=== PATIENT | male | born 1950 | race Caucasian/White ===

== ENCOUNTER → 2024-03-02 06:43 | Outpatient (REF) | payer MEDICARE, SELFPAY | LOC: HWRAD 06:43 | PROVIDERS: ATTENDING PHYSICIAN Internal Medicine Gastroenterology; FAMILY PHYSICIAN Family Medicine | DX: K21.9 Gastro-esophageal reflux disease without esophagitis (principal) | CPT/HCPCS: 76700 ==

== ENCOUNTER 2024-08-22 11:16 | Emergency (ER) | payer MEDICARE, SELFPAY ==
[2024-08-22 11:24] VITALS: BP 171/77
[2024-08-22 11:36] VITALS: BMI 26.4
[2024-08-22 11:45] VITALS: BP 143/87
[2024-08-22 11:56] LABS: % Basophils 0.5 % (0-2); % Eosinophils 3.2 % (0-6); % Immature Granulocytes 0.3 % (0-0.5); % Lymphocytes 27.5 % (20.5-51.1); % Monocytes 5.2 % (1.7-9.3); % Neutrophils 63.3 % (42.2-75.2); Absolute Eosinophils 0.3 10^3/uL (0-0.7); Absolute Lymphocytes 2.2 10^3/uL (1.2-3.4); Absolute Monocytes 0.4 10^3/uL (0.1-0.6); Hematocrit 42.4 % (39.0-52.0); Hemoglobin 14.7 g/dL (13.0-18.0); Mean Corp Hgb Conc. 34.7 g/dL (33.0-37.0); Mean Corpuscular Hgb 29.8 pg (27.0-31.0); Mean Platelet Volume 11.3 fL (7.4-10.4); Nucleated Red Blood Cells % 0 % (-); Platelet Count 188 10^3/uL (130-400); Red Blood Cell Count 4.93 10^6/uL (4.70-6.10); Red Cell Dist. Width 13.4 % (11.5-14.5); White Blood Cell Count 7.9 10^3/uL (4.8-10.8)
[2024-08-22 12:00] VITALS: BP 140/76
--- NOTE | 2024-08-22 12:07 | ED.GENMED ---
History of Present Illness
General
Chief Complaint: Chest Pain
Time Seen by Provider: 08/22/24 11:32
History of Present Illness
History of Present Illness:
73-year-old male with history of GERD and overactive bladder presenting to the emergency department for intermittent chest pain. Patient reports symptoms on and off for over a week. Does note that symptoms are worse with walking around, no
symptoms at rest. Denies known cardiac issues. Pain is on the right side of the chest with tingling to the right and left extremities. Denies ever having to see a labor specialist in the past. Denies abdominal pain or GI symptoms. Denies fever or
cough. Patient went to his primary care doctor prior to arrival, was sent to the ER for further assessment
Phy Exam
Physical Exam
Physical Exam:
General: Well-appearing, no clinical signs of dehydration, nontoxic and in no acute distress
HEENT: protecting airway
Neck: appears supple
CV: Normal heart rate, regular rhythm
Resp: No accessory muscle use, no increased work of breathing, lungs clear to auscultation bilaterally
Abd: Soft and non-distended, no tenderness to palpation
Extremities: No deformities, no swelling, no erythema
Neuro: alert, no focal neurologic deficit
: deferred
Rectal: deferred
Psych: Normal affect
Skin: Intact
Scores
Heart Score for Chest Pain Patients
STEMI patient?: No
History: Moderately Suspicious
ECG: Normal
Age: >/= 65 years
Risk Factors: No Risk Factors
Troponin: </= Normal Limit
Heart Score for Chest Pain Patients: 3
Heart Score Risk: 2.5% MACE over next 6 weeks
Course
Orders/Labs/Results
Orders:
Orders
08/22/24 11:17
ECG [Electrocardiogram (*1)] Urgent
Reason for Study: Chest Pain
EKG- Treatment ONCE
08/22/24 11:36
Complete Blood Count/With Diff Urgent
Comprehensive Metabolic Panel Urgent
Lipase Urgent
Troponin I Urgent
Abnormal Lab Results
08/22/24
11:36
MPV 11.3 H fL
(7.4-10.4)
08/22/24 11:36
08/22/24 11:36
Vital Signs
Initial and Last Documented VS:
Initial Vital Signs
Temp Pulse Resp BP Pulse Ox
98.0 F 42 16 171/77 98
08/22/24 11:24 08/22/24 11:24 08/22/24 11:24 08/22/24 11:24 08/22/24 11:24
Last Documented Vital Signs
Temp Pulse Resp BP Pulse Ox
98.0 F 73 15 140/76 100
08/22/24 11:24 08/22/24 12:15 08/22/24 12:15 08/22/24 12:00 08/22/24 12:15
MDM/Problems Addressed
MDM/Problems Addressed:
73-year-old male presenting to the emergency department for intermittent chest pain for the past week. Vital signs on arrival significant for hypertension, however resolved without intervention.
On exam patient is resting comfortably, no present chest pain at rest. EKG obtained, frequent PVCs, however patient is denying any palpitations or heart fluttering. Patient does note pain with exertion. No obvious ischemic abnormality on EKG.
However concerning symptom presentation, plan for labs including troponin.
13:10 -labs are unremarkable including negative troponin. EKG interpreted by cardiology, without concern for ischemia. At this time feel stable for discharge, however with close interval follow-up with cardiology for potential stress testing.
Will provide cardiology follow-up. Return precautions discussed and patient verbalized understanding
*EKG
Interpreted by ED Provider?: Yes
EKG Intrepretation Date: 08/22/24
EKG Intrepretation Time: 12:10
Interpretation: abnormal
Comparison EKG: no comparison EKG present
Heart Rate: 72
Rate: normal
Rhythm: sinus and PVC's
[place]: normal axis
Interval: normal interval
QRS Pattern: normal QRS
Ischemia: no ischemia
*Critical Care Note
Total Time (30-74mins, 75-104mins- exclusive of procedures): Not Applicable
ED Attending Note
-
Portions of this chart may have been created with voice recognition software.� Occasional wrong word or��sound alike� substitutions may have occurred due to the inherent limitations of voice recognition software.
Discharge Plan
Departure
Patient Disposition: Home (Routine Discharge)
Date of Disposition: 08/22/24
Time of Disposition: 13:16
Patient with high blood pressure during this ER visit?: Yes
Condition: Good
Discharge Problem:
Chest pain
Instructions: Chest Pain CBC Follow Up, BLOOD PRESSURE
Referrals:
Alok Elliott MD [Family Provider] -
Activity Restrictions/Additional Instructions:
You were seen in the emergency department for chest pain
You were found to have normal blood work and normal EKG. You are advised to follow-up closely with the cardiology's. They should call you in the next 3 to 5 days for appointment. However if you do not hear for them, please call them to schedule
an appointment.
Please follow-up closely with your primary care physician.
Return to the emergency department for any worsening of your symptoms, or any development of chest pain, difficulty breathing, abdominal pain with persistent vomiting and inability to tolerate food or liquid by mouth (concern for dehydration),
weakness, headache or confusion, fever greater than 100.4, or any additional symptoms that are concerning to you.
Thank you for choosing [facility].
Interventions
Interventions:
*Risk Screen - Suicide Last Done: 08/22/24 11:24
*Neglect/Abuse Screening Last Done: 08/22/24 11:24
ED- Cardiac Assessment Last Done: 08/22/24 11:59
Discharge Date and Time
Print Language: MAORI
[2024-08-22 12:12] LABS: ALT (SGPT) 27 U/L (0-50); AST (SGOT) 26 U/L (17-59); Albumin 4.2 g/dl (3.5-5.0); Alkaline Phosphatase 79 U/L (38-126); Blood Urea Nitrogen 11 mg/dl (9-20); Calcium 9.5 mg/dl (8.4-10.2); Carbon Dioxide 25 mmol/L (22-30); Chloride 107 mmol/L (98-107); Estimated Creatinine Clearance 81 ml/min; Glucose 97 mg/dl (70-99); Lipase 51 U/L (23-300); Potassium 3.9 mmol/L (3.5-5.1); Sodium 140 mmol/L (135-145); Total Protein 7.2 g/dl (6.3-8.2); eGFR > 60.00
[2024-08-22 12:23] LABS: Troponin I < 0.012 ng/ml
== END 2024-08-22 13:40 | disposition home or self-care (01) ==
LOC: EMR 11:16
PROVIDERS: EMERGENCY PHYSICIAN Student in an Organized Health Care Education/Training Program; FAMILY PHYSICIAN Family Medicine
DX: R07.89 Other chest pain (principal); R20.2 Paresthesia of skin; I49.3 Ventricular premature depolarization; K21.9 Gastro-esophageal reflux disease without esophagitis
CPT/HCPCS: 99284; 80053; 83690; 84484; 85025; 93005

== ENCOUNTER → 2024-08-24 10:00 | Outpatient (REF) | payer MEDICARE, SELFPAY | LOC: HWRAD 10:00 | PROVIDERS: ATTENDING PHYSICIAN Internal Medicine Cardiovascular Disease; FAMILY PHYSICIAN Family Medicine | DX: R07.89 Other chest pain (principal); I49.3 Ventricular premature depolarization; I49.8 Other specified cardiac arrhythmias | CPT/HCPCS: 71046 ==

== ENCOUNTER → 2024-08-28 10:07 | Outpatient (REF) | payer MEDICARE, SELFPAY | LOC: HWRCS 10:07 | PROVIDERS: ATTENDING PHYSICIAN Internal Medicine Cardiovascular Disease; FAMILY PHYSICIAN Family Medicine | DX: R07.89 Other chest pain (principal); I49.3 Ventricular premature depolarization; I49.8 Other specified cardiac arrhythmias | CPT/HCPCS: 93306 ==

== ENCOUNTER → 2024-08-29 12:16 | Outpatient (REF) | payer MEDICARE, SELFPAY | LOC: HWRCS 12:16 | PROVIDERS: ATTENDING PHYSICIAN Internal Medicine Cardiovascular Disease; FAMILY PHYSICIAN Family Medicine | DX: R07.89 Other chest pain (principal); I49.3 Ventricular premature depolarization; I49.8 Other specified cardiac arrhythmias | CPT/HCPCS: 78452; 93017; A9500 ==

== ENCOUNTER → 2024-09-04 08:16 | Outpatient (REF) | payer MEDICARE, SELFPAY | LOC: RCS 08:16 | PROVIDERS: ATTENDING PHYSICIAN Internal Medicine Cardiovascular Disease; FAMILY PHYSICIAN Family Medicine | DX: R07.89 Other chest pain (principal); I49.8 Other specified cardiac arrhythmias | CPT/HCPCS: 93225; 93226 ==

== ENCOUNTER → 2025-02-13 08:49 | Outpatient (REF) | payer MEDICARE, SELFPAY | LOC: DHSLP 08:49 | PROVIDERS: ATTENDING PHYSICIAN Internal Medicine; FAMILY PHYSICIAN Family Medicine | DX: G47.30 Sleep apnea, unspecified (principal); R06.83 Snoring | CPT/HCPCS: 95800 ==